=== PATIENT | female | born 1975 ===

== ENCOUNTER 2016-12-05 08:30 | Emergency (ER) | payer BC ==
[2016-12-05 08:53] VITALS: BP 111/78
--- NOTE | 2016-12-05 09:50 | UC ---
Judson Ley Anna, [facility] on 12/05/16 at 0902 . Respiratory Complaint HPI - HPI Summary HPI Summary: MD Note Vital signs stable. 99 temperature. Pulse ox 99. No alcohol, nonsmoker. Cough for one week. Previous visits noncontributory. Allergy to Penicillin. Nurses Note Pt states increased mucus, congestion at night and headaches over last week. Pt states she has a productive cough, fatigue, and chest heaviness. Pt states she doesn't feel like she can take a deep breath without excessive coughing. Pt unsure if she has had a fever. In Room Note Patient is a 41 y/o female coming to [facility] presenting with gradual onset of COUGHING that began one week ago. Has felt ill for two weeks. She went to her chiropractor, felt better the next morning but was sick that night and thereafter. Her cough has been PRODUCTIVE and is WORSE AT NIGHT. She went to her chiropractor again this week and felt better the next day. The symptoms worsened over the next few days. She feels FATIGUED, with DIFFUSE PRESSURE IN HER CHEST, CONGESTION, SOB, WHEEZING, MUÑIZ, AND SINUS PRESSURE. She tried water compresses and essential oils that have not alleviated the pain. She has some EAR PAIN yesterday, but this has sine resolved. Right now, her chest pressure is her most severe symptom, and she still reports mucous but denies current sinus pressure. Denies smoking or history of asthma. Denies n/v/d and fever. Onset: one week ago Palliative/Provocative: coughing Quality: pressure Region: head, chest, sinuses Severity: moderate Time: constant Associated Sx: chest congestion, sob, wheeezing, muñiz, sinus pressure Home Rx: chiropractor, water compresses, essential oils, "fire cider" with antibiotics - History of Current Complaint Chief Complaint: UCRespiratory Stated Complaint: FLUID IN HER CHEST Hx Obtained From: Patient Hx Last Menstrual Period: 11/27/16 - Allergies/Home Medications Allergies/Adverse Reactions: Allergies Allergy/AdvReac Type Severity Reaction Status Date / Time Penicillins Allergy Mild Rash Verified 12/05/16 08:43 Gluten Meal Allergy See Comment Verified 12/05/16 08:43 Dairy Allergy See Comment Uncoded 12/05/16 08:43 Sulfa Allergy GI Upset Uncoded 12/05/16 08:43 Home Medications: Home Medications Ibuprofen W/ Caffeine & Aspirin 2 tab PO PRN 12/05/16 [History] Natural Defense Vitamin 1 tab PO PRN 12/05/16 [History] PMH/Surg Hx/FS Hx/Imm Hx Endocrine History Of: Denies: Diabetes, Thyroid Disease Cardiovascular History Of: Denies: Cardiac Disorders, Hypertension, Pacemaker/ICD Respiratory History Of: Denies: COPD, Asthma GI/ History Of: Denies: Ulcer, Renal Disease - Surgical History Surgical History: None - Family History Known Family History: Positive: Hypertension - Father, Diabetes - Mother and sister, Other - Father [place] Negative: Cardiac Disease - Social History Occupation: Employed Full-time Lives: With Family Alcohol Use: None Substance Use Type: None Smoking Status (MU): Never Smoked Tobacco - Immunization History Most Recent Influenza Vaccination: Not utd Review of Systems Constitutional: Fatigue Skin: Negative Eyes: Drainage ENT: Ear Ache, Nasal Discharge Respiratory: Cough Cardiovascular: Chest Pain - Pressure Gastrointestinal: Negative Genitourinary: Negative Motor: Negative Neurovascular: Negative Musculoskeletal: Negative Neurological: Headache Psychological: Negative All Other Systems Reviewed And Are Negative: Yes Physical Exam Triage Information Reviewed: Yes Appearance: Well-Appearing, No Pain Distress, Well-Nourished Vital Signs: Initial Vital Signs Temp 99.2 F 12/05/16 08:48 Pulse 83 12/05/16 08:48 Resp 18 12/05/16 08:48 BP 111/78 12/05/16 08:48 Pulse Ox 99 12/05/16 08:48 Vital Signs Reviewed: Yes Eyes: Positive: Conjunctiva Clear ENT: Positive: Hearing grossly normal, Pharynx normal, TMs normal, Other: - Maxillary sinuses mild tenderness. Negative: Muffled/hoarse voice Neck: Positive: Supple, No Lymphadenopathy Respiratory: Positive: Chest non-tender, No respiratory distress, Rhonchi - SCATTERED RHONCHI AND WHEEZING RIGHT LUNG BASE, Wheezing. Negative: Lungs clear Cardiovascular: Positive: RRR, No Murmur Abdomen Description: Positive: Nontender, No Organomegaly, Soft Bowel Sounds: Positive: Present Musculoskeletal: Positive: Strength Intact, Other: - BRUCE Neurological: Positive: Alert Psychological: Positive: Age Appropriate Behavior Skin: Negative: rashes UC Diagnostic Evaluation - Laboratory O2 Sat by Pulse Oximetry: 99 Respiratory Course/Dx - Differential Dx/Diagnosis Differential Diagnosis/HQI/PQRI: Other - PNA v. Cold Provider Diagnoses: Bronchitis w/bronchospasm Discharge - Discharge Plan Condition: Stable Disposition: HOME Prescriptions: Albuterol HFA INHALER* [Ventolin HFA Inhaler*] 1 - 2 puff INH Q4H #1 mdi MDD 8 PUFFS Azithromycin TAB* [Zithromax TAB*] 250 mg PO DAILY #6 tab Dexamethasone TAB* [Decadron TAB*] 4 mg PO DAILY #4 tab Spacer/Aerosol-Holding Chamber [Aerochamber Mv] 1 mis XX Q6HR #1 mis Patient Education Materials: Acute Bronchitis (ED), How to Use a Nebulizer (ED) , Bronchospasm (ED), Wheezing (ED) Referrals: No Primary Care Phys,NOPCP [Primary Care Provider] - Additional Instructions: WE DISCUSSED: YOU HAVE BRONCHITIS WITH BRONCHOSPASM. Re check at any time for increased pain, shortness of breath, temperature, cough. Treatment: z sepideh, dexamethasone for 2 days, albuterol, spacer. ALSO: COUGH, CONGESTION of CHEST, SINUSES OR EARS: The most important goal is to liquefy all the phlegm and get it out of your head and chest. Any illness causing cough, congestion, sore throat or sinus discomfort can be helped by doing the following: STAND UNDER SHOWER STREAM TO LOOSEN SECRETIONS. STAY AWAY FROM ANY SMOKE OR IRRITANTS. WHAT ELSE CAN HELP RELIEVE YOUR SYMPTOMS: GENERAL TYPES OF MEDICINE THAT MAY HELP DECONGESTANTS: helps relieve stuffiness and clears sinuses. Pseudoephedrine ( Sudafed or generic) is effective but you need to ask the pharmacist for it because it may be kept behind the counter. ANTIHISTAMINES: are NOT helpful in many colds and flus because they can worsen sore throat, dry eyes and mouth and cause drowsiness. Examples are diphenhydramine, doxylamine and chlorpheniramine. They can help dry you out if you are having profuse, clear drainage from the nose. EXPECTORANTS: helps thin mucous in the nose and chest, making it easier to clear the fluid out. Expectorants are in most combination cough/cold remedies and should be taken with plenty of water. Guaifenesin is the most common expectorant and it comes in pill or liquid form. Mucinex is an extended release form of guaifenesin. COUGH SUPPRESANT: reduces the body's cough reflex. Dextromethorphan is in over the counter products, but sometimes narcotics such as codeine or hydrocodone are used to suppress cough. SPECIFIC MEDICATIONS: The most important goal is to liquefy all the phlegm and get it out of your head and chest: The following medicines (in prescription form or you can buy them without prescription) may help: To help with cough: DEXTROMETHORPHAN (Vicks, Robitussin, Nyquil and other brands) To help break up phlegm: GUAIFENESIN (Mucinex, Robitussin, other brands) To help clear congestion: PSEUDOEPHEDRINE (Sudafed, Dimetapp, other brands) TRY TO CLEAR NOSE: AFRIN NASAL SPRAY: 2-3 SPRAYS PER NOSTRIL, TWICE A DAY FOR TWO DAYS ONLY. USEFUL WAYS TO FEEL BETTER WITHOUT MEDICATIONS: STAND UNDER SHOWER STREAM TO LOOSEN SECRETIONS. USE A VAPORIZOR. STAY AWAY FROM ANY SMOKE OR IRRITANTS. USE SALINE NASAL SPRAY TO KEEP FLOW OF MUCOUS FROM NOSTRILS AND SINUSES. CONSIDER USING NETI POT TO HELP WITH ALLERGIES AND CONGESTION IN THE NOSE. USE THIS THREE TIMES A WEEK. YOU CAN GET THIS AT [employer] IN [place] OR VARIOUS DRUGSTORES. DRINK LOTS OF WARM FLUIDS USEFUL HOME REMEDIES: WARM WATER GARGLES, WITH TSP OF SALT PER 8 OUNCES OF WATER, GARGLE FOR A FEW SECONDS AND SPIT OUT; GARGLE AND SPIT OUT; EVERY THREE HOURS. AND/OR: WARM WATER OR TEA, HONEY AND LEMON; 2-3 CUPS A DAY. FOR SORE THROAT: KEEP THROAT MOIST WITH LOZENGES; TEA AND HONEY. USE WARM WATER GARGLES 3-4 TIMES A DAY. FOLLOW UP: RE-CHECK IN 1O DAYS, NEEDED, IF YOU ARE NOT IMPROVING. RETURN HERE OR SEE YOUR PHYSICIAN. RE-CHECK SOONER IF INCREASED PAIN OR TEMPERATURE. The documentation as recorded by the Judson cisneros Anna accurately reflects the service I personally performed and the decisions made by me, Randal Valadez MD.
== END 2016-12-05 09:54 | disposition home or self-care (01) ==
LOC: UCEAST 08:30
DX: J20.9 Acute bronchitis, unspecified (principal); Z88.0 Allergy status to penicillin; Z88.2 Allergy status to sulfonamides
CPT/HCPCS: 99212; G0463

== ENCOUNTER 2018-05-18 18:26 | Emergency (ER) | payer BC ==
[2018-05-18 19:21] VITALS: BP 127/77
[2018-05-18] MEDS ORDERED: Fluorescein Sod TOPICAL 0.6* 0.6 MG TEST OPHTHALMIC ONE (19:39)
[2018-05-18] MEDS ORDERED: Tetracaine 0.5% OPTH.SOL 4 ML* 1 DROP BTL RIGHT EYE ONE (19:40)
--- NOTE | 2018-05-18 19:40 | UC ---
Eye Complaint HPI - HPI Summary HPI Summary: The pt is a 42 y/o female presenting to c/o blurry vision since 17:30 this evening. She feels a scratchy feeling underneath her R eyelid when she shuts her eye. The pt reports a white line in her R field of vision but denies eyeball pain and photophobia. She does not wear contact lenses. This is scribe Kellen Grover documenting for attending Dr. Erick Tomlinson.I , Dr. Erick Tolminson personally performed the services described in this documentation as scribed in my presence and it is both accurate and complete. - History of Current Complaint Chief Complaint: Eye Stated Complaint: EYE DISCOLORATION,POSS FB Time Seen by Provider: 05/18/18 19:34 Hx Obtained From: Patient Hx Last Menstrual Period: <1 WEEK AGO Onset/Duration: Sudden Onset - 17:30, Lasting Hours, Still Present Timing: Constant Severity Initially: Mild Severity Currently: Mild Pain Intensity: 4 Pain Scale Used: 0-10 Numeric Aggravating Factor(s): Blinking Associated Signs And Symptoms: Negative: Photophobia - Allergies/Home Medications Allergies/Adverse Reactions: Allergies Allergy/AdvReac Type Severity Reaction Status Date / Time gluten Allergy "Inflamation"- Verified 05/18/18 19:22 back, sinus, hands Penicillins Allergy Rash Verified 05/18/18 19:22 Dairy Allergy See Comment Uncoded 12/05/16 08:43 Sulfa Allergy GI Upset Uncoded 12/05/16 08:43 Home Medications: Home Medications NK [No Home Medications Reported] 05/18/18 [History Confirmed 05/18/18] PMH/Surg Hx/FS Hx/Imm Hx Previously Healthy: Yes - Denies any PMHx of DM, HTN and HLD - Surgical History Surgical History: None - Family History Known Family History: Positive: Hypertension - Father, Diabetes - Mother and sister, Other - Father [place] Negative: Cardiac Disease - Social History Occupation: Employed Full-time Lives: With Family Alcohol Use: Occasionally Substance Use Type: None Smoking Status (MU): Never Smoked Tobacco - Immunization History Most Recent Influenza Vaccination: Not utd Review of Systems Constitutional: Negative - Fever Eyes: Negative - Photophobia , Eyeball pain, Blurred Vision All Other Systems Reviewed And Are Negative: Yes Physical Exam - Summary Physical Exam Summary: General: well-appearing, no pain distress Skin: warm, color reflects adequate perfusion, dry Head: normal Eyes: No pupillary edema seen in the R eye; R Pupils are reactive ; R Iris is intact ; No hay fever ; A 3mm by 1mm shallow crescent present from 19:00 to 21 :00 on the edge of the R iris . The crescent appears to be the surface of the R eye; L eye is normal ENT: normal Neck: supple, nontender Respiratory: CTA, breath sounds present Cardiovascular: RRR Abdomen: soft, nontender Bowel: present Musculoskeletal: normal, strength/ROM intact Neurological: sensory/motor intact, A&O x3 Psychological: affect/mood appropriate Triage Information Reviewed: Yes Vital Signs: Initial Vital Signs Temp 97.2 F 05/18/18 19:18 Pulse 66 05/18/18 19:18 Resp 16 05/18/18 19:18 BP 127/77 05/18/18 19:18 Pulse Ox 100 05/18/18 19:18 Vital Signs Reviewed: Yes Eye Complaint Course/Dx - Course Course Of Treatment: THE CRESENT APPEARS TO BE ON THE CORNEA. NO HYPHEMA. NORMAL PUPILLARY RESPONSE. THE EYE PAIN IS A SCRATCHING SENSATION ON THE SURFACE OF THE EYE. PATIENT DECLINES EYE GLOBE PAIN. THE BLURRED VISION HAS ALMOST COMPLETELY CLEARED. NO FLUORESENCE STAIN AVAILABLE FOR EXAM. WILL TREAT WITH ABX AND F/U WITH OPHTHALMOLOGY TOMORROW. - Differential Dx/Diagnosis Provider Diagnoses: RIGHT EYE PAIN Discharge - Sign-Out/Discharge Documenting (check all that apply): Patient Departure - Discharge Plan Condition: Stable Disposition: HOME Patient Education Materials: Blurred Vision (ED), Eye Pain (ED) Referrals: [facility] [facility]IAN REFERRAL [Outside] Garcia Powers MD [Medical Doctor] - Vlad Pettit MD [Medical Doctor] - Additional Instructions: FOLLOW UP WITH OPHTHALMOLOGY TOMORROW, 05/19/18. PLACE 1 DROP OF THE ANTIBIOTIC IN YOUR RIGHT EYE EVERY 4 HOURS WHILE AWAKE. GET RECHECKED FOR ANY WORSENING OF YOUR CONDITION OR QUESTIONS OR CONCERNS. - Billing Disposition and Condition Condition: STABLE Disposition: Home
[2018-05-18] MEDS ORDERED: Tobramycin 0.3% OPHTH.SOL* 5 ML BOT (regular eye drops) RIGHT EYE ONE (20:12)
== END 2018-05-18 20:40 | disposition home or self-care (01) ==
LOC: UCEAST 18:26
DX: H57.11 Ocular pain, right eye (principal); H53.8 Other visual disturbances; Z88.0 Allergy status to penicillin; Z88.2 Allergy status to sulfonamides
CPT/HCPCS: 99212; A9270-GY; G0463

== ENCOUNTER 2018-05-23 17:25 | Emergency (ER) | payer BC ==
[2018-05-23 17:49] VITALS: BP 120/78
[2018-05-23] MEDS ORDERED: Levofloxacin TAB* 500 MG PO ONE (18:31)
[2018-05-23] MEDS ORDERED: metroNIDAZOLE TAB* 250 MG PO ONE (18:32)
[2018-05-23] MEDS ORDERED: Tetan/Diph/Pertus SYR(Tdap)* 0.5 ML SYR(BOOSTRIX) use SYR IM ONE (18:37)
--- NOTE | 2018-05-23 18:44 | UC ---
Bite Injury/Animal HPI - HPI Summary HPI Summary: Patient states she was bitten by a nervous dog this afternoon, that is usually taken care by her daughter. The dog is docile with her daughter but is not familiar with her and she usually yaps at her and does not approach her. patient states daughter was holding the dog next to her and as she turned her head towards it, she got a bite. Cannot recall when the last tetanus vaccine was given. Denies bleeding, fever, chills or discharge. - History of Current Complaint Chief Complaint: UCBiteInjury Stated Complaint: DOG BITE ON NOSE Time Seen by Provider: 05/23/18 18:15 Hx Obtained From: Patient Hx Last Menstrual Period: 05/16/2018 ?: No Severity Currently: Mild Severity Initially: Mild Pain Intensity: 1 Onset/Duration: Sudden Onset, Lasting Hours Type of Bite: Pet Has Animal Been Immunized?: Yes Character: Abrasion/Laceration Aggravating Factor(s): Nothing Alleviating Factor(s): Nothing Associated Signs And Symptoms: Positive: Negative Hx of Bite: Provoked by: - close contact Animal Available for Observation: Yes Body - Head: 1 - parallel abrasions on nose 1cm in length and 2cm in length. No bleeding, no discharge, no surrounding erythema noted. - Risk Factors Infection/Sepsis Risk Factors: Negative - Allergies/Home Medications Allergies/Adverse Reactions: Allergies Allergy/AdvReac Type Severity Reaction Status Date / Time gluten Allergy "Inflamation"- Verified 05/23/18 17:50 back, sinus, hands Penicillins Allergy Rash Verified 05/23/18 17:50 Dairy Allergy See Comment Uncoded 05/23/18 17:50 Sulfa Allergy GI Upset Uncoded 05/23/18 17:50 PMH/Surg Hx/FS Hx/Imm Hx Previously Healthy: Yes - Surgical History Surgical History: None - Family History Known Family History: Positive: Hypertension - Father, Diabetes - Mother and sister, Other - Father [place] Negative: Cardiac Disease - Social History Alcohol Use: Occasionally Substance Use Type: None Smoking Status (MU): Never Smoked Tobacco - Immunization History Most Recent Influenza Vaccination: Not utd Hx Tetanus, Diphtheria Vaccination: No Review of Systems Constitutional: Negative Skin: Bruising All Other Systems Reviewed And Are Negative: Yes Physical Exam Triage Information Reviewed: Yes Appearance: Well-Appearing, No Pain Distress, Well-Nourished Vital Signs: Initial Vital Signs Temp 97.9 F 05/23/18 17:42 Pulse 72 05/23/18 17:42 Resp 18 05/23/18 17:42 BP 120/78 05/23/18 17:42 Pulse Ox 100 05/23/18 17:42 Vital Signs Reviewed: Yes Eyes: Positive: Conjunctiva Clear ENT: Positive: Hearing grossly normal Neck: Positive: Supple Respiratory: Positive: Chest non-tender Cardiovascular: Positive: Pulses Normal, Brisk Capillary Refill Abdomen Description: Positive: Nontender Musculoskeletal: Positive: Strength Intact, ROM Intact, No Edema Skin Exam: Other - abrassion on right side of tip of nose, 1cm and 2cm in length Bite Injury Course/Dx - Course Course Of Treatment: Abrassions of nose were cleaned and dressed, Tdap given, start cipro and flagyl as directed. Continue wound care, f/u with PCP. - Differential Dx/Diagnosis Provider Diagnoses: Dog Bite Discharge - Sign-Out/Discharge Documenting (check all that apply): Patient Departure - Discharge Plan Condition: Good Disposition: HOME Prescriptions: Ciprofloxacin TAB* [Cipro 500 MG TAB*] 500 mg PO BID 7 Days #14 tab metroNIDAZOLE * 500 mg PO Q8H 7 Days #21 tablet Patient Education Materials: Animal Bite (ED), Ciprofloxacin (By mouth), Metronidazole (By mouth), Tdap and Td Vaccines for Adults (ED) Forms: *Work Release Referrals: No Primary Care Phys,NOPCP [Primary Care Provider] - [facility] [place] [place]Outside] - Billing Disposition and Condition Condition: GOOD Disposition: Home
== END 2018-05-23 18:50 | disposition home or self-care (01) ==
LOC: UCEAST 17:25
DX: S00.37XA Other superficial bite of nose, initial encounter (principal); W54.0XXA Bitten by dog, initial encounter; Y92.9 Unspecified place or not applicable; Z91.011 Allergy to milk products; Z88.0 Allergy status to penicillin; Z88.2 Allergy status to sulfonamides; Z91.018 Allergy to other foods
CPT/HCPCS: 90471; 90715; 99212; A9270-GY; G0463

== ENCOUNTER 2019-02-04 09:42 | Emergency (ER) | payer BC ==
[2019-02-04 09:52] VITALS: BP 110/78
--- NOTE | 2019-02-04 10:23 | UC ---
Skin Complaint HPI - HPI Summary HPI Summary: 43-year-old female who had a spot on the back of her head last week which she scratched and it developed a scab since then it has become mildly tender, no drainage. - History of Current Complaint Chief Complaint: UCSkin Time Seen by Provider: 02/04/19 10:11 Stated Complaint: SKIN COMPLAINT Hx Obtained From: Patient Hx Last Menstrual Period: ended yesterday ?: No Onset/Duration: Gradual Onset Skin Exposure Onset/Duration: Days Ago Timing: Constant Onset Severity: Mild Current Severity: Moderate - The area in the back of her head is more tender today. Pain Intensity: 3 Location: Discrete - Had. Character: Pain, Redness Aggravating Factor(s): Nothing Alleviating Factor(s): Nothing Associated Signs & Symptoms: Positive: Drainage - No active drainage the patient did have a scab present. - Allergy/Home Medications Allergies/Adverse Reactions: Allergies Allergy/AdvReac Type Severity Reaction Status Date / Time gluten Allergy "Inflamation"- Verified 05/23/18 17:50 back, sinus, hands Penicillins Allergy Rash Verified 05/23/18 17:50 Dairy Allergy See Comment Uncoded 05/23/18 17:50 Sulfa Allergy GI Upset Uncoded 05/23/18 17:50 PMH/Surg Hx/FS Hx/Imm Hx Previously Healthy: Yes - Surgical History Surgical History: None - Family History Known Family History: Positive: Hypertension - Father, Diabetes - Mother and sister, Other - Father [place] Negative: Cardiac Disease - Social History Alcohol Use: Rare Substance Use Type: None Smoking Status (MU): Never Smoked Tobacco - Immunization History Most Recent Influenza Vaccination: Not utd Hx Tetanus, Diphtheria Vaccination: No Review of Systems All Other Systems Reviewed And Are Negative: Yes Skin: Positive: Other - Scab on back of head with tender area no active drainage. This bothered her over the past week. Is Patient Immunocompromised?: No Physical Exam Triage Information Reviewed: Yes Appearance: Well-Appearing, No Pain Distress, Well-Nourished Vital Signs: Initial Vital Signs Temp 98.2 F 02/04/19 09:46 Pulse 78 02/04/19 09:46 Resp 16 02/04/19 09:46 BP 110/78 02/04/19 09:46 Pulse Ox 100 02/04/19 09:46 Vital Signs Reviewed: Yes Respiratory: Positive: Lungs clear, Normal breath sounds, No respiratory distress, No accessory muscle use Cardiovascular: Positive: RRR, No Murmur, Pulses Normal, Brisk Capillary Refill Skin: Positive: Other - Patient has a small scab on the back of her skull surrounded by approximately 3.0 cm of redness, no swelling, no active drainage, it is tender on palpation, no streaking. Course/Dx - Course Course Of Treatment: 43-year-old female who is to have a small cellulitis surrounding a scab which she had picked. She is allergic to penicillin and sulfa therefore after discussion with Dr. Tomlinson I'm going to start her on doxycycline 100 mg by mouth twice a day 10 days. She stood warm moist compresses to the area 4-6 times a day. She is to follow-up with [facility] if she has no improvement or any worsening symptoms. She is agreeable to this plan of action. - Diagnoses Provider Diagnosis: Cellulitis Discharge - Sign-Out/Discharge Documenting (check all that apply): Patient Departure All imaging exams completed and their final reports reviewed: No Studies - Discharge Plan Condition: Fair Disposition: HOME Prescriptions: DOXYcycline CAP(*) [DOXYcycline 100MG CAP(*)] 100 mg PO BID 10 Days #20 cap Patient Education Materials: Cellulitis (DC) Referrals: No Primary Care Phys,NOPCP [Primary Care Provider] - [facility] [Outside] Additional Instructions: Warm, moist compresses to head 4-6 times a day for 20 minutes each time. Do not eat or drink dairy products, antacids, or multivitamins 2 hours before you take the Doxycycline and 2 hours after you take the doxycycine but be sure and take it with food. Follow up at the [facility] if no improvement by Friday and go to the ER if you have facial swelling, fever, chills, worsening symptoms. - Billing Disposition and Condition Condition: FAIR Disposition: Home
== END 2019-02-04 10:27 | disposition home or self-care (01) ==
LOC: UCEAST 09:42
DX: L03.811 Cellulitis of head [any part, except face] (principal); Z88.0 Allergy status to penicillin; Z88.2 Allergy status to sulfonamides; Z91.011 Allergy to milk products
CPT/HCPCS: 99212; G0463

== ENCOUNTER 2019-02-24 09:51 | Emergency (ER) | payer BC ==
[2019-02-24 10:09] VITALS: BP 112/70
--- NOTE | 2019-02-24 10:33 | UC ---
Skin Complaint HPI - HPI Summary HPI Summary: 43 yo female presents with tick bite. She tells me that she removed a tick from her right hip yesterday. Thinks it was there about a day or two. She has been bitten by ticks in the past without issues, but is concerned because this site appears more bruised than usual. She has no pain or symptoms at this time. - History of Current Complaint Chief Complaint: UCSkin Time Seen by Provider: 02/24/19 10:32 Stated Complaint: TICK BITE PERSONAL Hx Obtained From: Patient Hx Last Menstrual Period: ended yesterday Onset/Duration: Sudden Onset Current Severity: None Pain Intensity: 0 - Allergy/Home Medications Allergies/Adverse Reactions: Allergies Allergy/AdvReac Type Severity Reaction Status Date / Time gluten Allergy "Inflamation"- Verified 02/24/19 10:09 back, sinus, hands Penicillins Allergy Rash Verified 02/24/19 10:09 Dairy Allergy See Comment Uncoded 02/24/19 10:09 Sulfa Allergy GI Upset Uncoded 02/24/19 10:09 Home Medications: Home Medications NK [No Home Medications Reported] 02/24/19 [History Confirmed 02/24/19] PMH/Surg Hx/FS Hx/Imm Hx - Additional Past Medical History Additional PMH: None - Surgical History Surgical History: None - Family History Known Family History: Positive: Hypertension - Father, Diabetes - Mother and sister, Other - Father [place] Negative: Cardiac Disease - Social History Lives: With Family Alcohol Use: Rare Substance Use Type: None Smoking Status (MU): Never Smoked Tobacco - Immunization History Most Recent Influenza Vaccination: Not utd Hx Tetanus, Diphtheria Vaccination: No Review of Systems All Other Systems Reviewed And Are Negative: Yes Constitutional: Positive: Negative Skin: Positive: Other - Tick bite Respiratory: Positive: Negative Cardiovascular: Positive: Negative Neurovascular: Positive: Negative Neurological: Positive: Negative Psychological: Positive: Negative Physical Exam - Summary Physical Exam Summary: GENERAL: NAD. WDWN. No pain distress. SKIN: Right hip: Superficial skin there is a 7mm diameter of mild erythema and edema with central 1mm area of superficial skin loss. No streaking, bleeding, or drainage. NECK: Supple. Nontender. No lymphadenopathy. CHEST: No accessory muscle use. Breathing comfortably and in no distress. CV: Pulses intact. Cap refill <2seconds NEURO: Alert. PSYCH: Age appropriate behavior. Triage Information Reviewed: Yes Vital Signs: Initial Vital Signs Temp 97.5 F 02/24/19 10:05 Pulse 72 02/24/19 10:05 Resp 18 02/24/19 10:05 BP 112/70 02/24/19 10:05 Pulse Ox 99 02/24/19 10:05 Vital Signs Reviewed: Yes Course/Dx - Course Course Of Treatment: Area appears consistent with tick bite. No sign of infection, cellulitis, or FB at this time. Advised to cover the area with a band-aid until well healed. She was given doxycycline 200mg in the clinic at her request for prophylactic treatment of lyme. - Diagnoses Provider Diagnosis: Tick bite Discharge - Sign-Out/Discharge Documenting (check all that apply): Patient Departure All imaging exams completed and their final reports reviewed: No Studies - Discharge Plan Condition: Stable Disposition: HOME Patient Education Materials: Lyme Disease (ED), Tick Bite (ED) Referrals: No Primary Care Phys,NOPCP [Primary Care Provider] - Additional Instructions: TICK BITE: You have been bitten by a tick. Once the tick is removed, these "bites" usually cause no problems. Tick fever, tick paralysis, [place] Spotted fever, and Lyme disease are uncommon -- but you should mention this tick bite to your doctor if you develop unusual symptoms in the next several weeks. If you develop any of the following, please see your physician promptly: (1) Fever, chills, or generalized malaise associated with a headache. (2) A red round area at the site of the bite (or elsewhere) (3) Joint pain, joint swelling or generalized weakness. (4) Redness, swelling, or drainage at the site of the bite. - Billing Disposition and Condition Condition: STABLE Disposition: Home
[2019-02-24] MEDS ORDERED: DOXYcycline CAP(*) 100 MG PO ONE (10:54)
== END 2019-02-24 11:06 | disposition home or self-care (01) ==
LOC: UCEAST 09:51
DX: S70.261A Insect bite (nonvenomous), right hip, initial encounter (principal); W57.XXXA Bitten or stung by nonvenomous insect and other nonvenomous arthropods, initial encounter; Y92.9 Unspecified place or not applicable; Z88.0 Allergy status to penicillin; Z88.2 Allergy status to sulfonamides; Z91.011 Allergy to milk products
CPT/HCPCS: 99212; A9270-GY; G0463